=== PATIENT | female | born 1995 | race Two or more races ===

== ENCOUNTER 2022-05-30 10:38 | Emergency (ER) | payer MEDICAID, OTHER ==
[2022-05-30] MEDS ORDERED: HYDROcodone-ACET 5/325MG TAB PO ONE (12:45)
[2022-05-30] MEDS ORDERED: KETOROLAC TROMETH 60MG/2ML VIAL IM ONE (12:45)
[2022-05-30] MEDS ORDERED: IBUP800T27 PO (12:47)
[2022-05-30 13:20] VITALS: BP 137/88
[2022-05-30] MEDS ORDERED: ONDA-144 PO (13:21)
[2022-05-30] MEDS ORDERED: ONDANSETRON ODT 4 MG TAB PO ONE (13:30)
== END 2022-05-30 13:15 | disposition home or self-care (01) ==
LOC: ER 10:38
DX: S82.402A Unspecified fracture of shaft of left fibula, initial encounter for closed fracture (principal); S93.602A Unspecified sprain of left foot, initial encounter; S93.402A Sprain of unspecified ligament of left ankle, initial encounter; X50.1XXA Overexertion from prolonged static or awkward postures, initial encounter; Y93.89 Activity, other specified; Y92.89 Other specified places as the place of occurrence of the external cause; Y99.8 Other external cause status
CPT/HCPCS: 29505; 73562; 73610; 73630; 99284; Q0162